=== PATIENT | female | born 1945 | race Caucasian/White ===

== ENCOUNTER 2020-08-08 09:30 | Outpatient (RCR) | payer MEDICARE, SELFPAY ==
--- NOTE | 2020-05-29 09:56 | PTOPEVAL ---
Thank you for referring Sindhu Nichols to [facility]. Please review, sign, date and return this plan of care JEFERSON. Pt has been referred to therapy to address her neck and UE pain and radiating symptoms. She requires additional skilled therapy to address decrease joint motion, UE weakness, radiating neural symptoms, and soft tissue restrictions to allow her to return to her normal daily activities. Cont PT 2x/wk x 6 wk. I agree with and certify that the following plan of care is medically necessary. Referring Physician Date Attending Provider: Wm Jeff MD *PT Outpatient Evaluation Start: 05/29/20 08:42 Freq: Status: Active Protocol: Document 05/29/20 08:45 [facility] (Rec: 05/29/20 09:20 [facility] [id number]) Therapy Assessment Status Assessment Status Assessment Status Evaluation Outpatient Past Medical History Past Medical History Source of Past Medical History Patient Cardiovascular History Hx Cardiac Disorders No Significant History Musculoskeletal History Hx Other Musculoskeletal Disorders Yes: left frozen shoulder Endocrine History Hx Hypothyroidism Yes Other History Hx Cancer Yes: left breast- 2000 Hx Chemotherapy Yes Hx Radiation Therapy Yes Evaluation Information Problem Diagnosis neck pain Onset 2 months Cause unknown Subjective Information She has been having neck pain Query Text:As Reported By Patient/ with sasha UE pain and weakness Family for the past 2 months. She has had neck pain on/off for years, but the symptoms have progressed. She reports difficulty with lifting objects due to hand weakness. She reports she has always been tight in her back/ neck muscles. Reports her right shoulder will lift up with the pain increases. She will have ACEVEDO due to muscle tightness. Will have ACEVEDO 4x/wk. She states she holds her stress and tension in her neck muscles.She has increased pain with prolonged sitting. She has increased pain with use of computer or phone. She is limited to 30'. She is not able to perform normal IADL's due to pain and weakness. She is unable to manage the vacuum
--- NOTE | 2020-06-20 10:28 | PTOPEVAL ---
Thank you for referring Sindhu Nichols to [facility]. Please review, sign, date and return this plan of care JEFERSON. Pt has received 8 therapy visits to address neck and UE impairments. She is progressing with UE function, improved pain and improved shoulder strength. She requires additional skilled therapy to achieve therapy goals. Cont PT 2x/wk x 4 wk. I agree with and certify that the following plan of care is medically necessary. Referring Physician Date Attending Provider: Wm Jeff MD Physical Therapy Update *PT Outpatient Evaluation Start: 05/29/20 08:42 Freq: Status: Active Protocol: Document 06/20/20 08:55 [facility] (Rec: 06/20/20 09:36 [facility] [id number]) Therapy Assessment Status Assessment Status Assessment Status Re-evaluation Evaluation Information Problem Diagnosis neck pain Onset 2 months Cause unknown Additional Evaluation Detail She has been having neck pain with sasha UE pain and weakness for the past 2 months. She has had neck pain on/off for years, but the symptoms have progressed. Subjective Information Reports her right UE and right Query Text:As Reported By Patient/ side of neck has improved Family with ability to hold objects in right hand. She remains limited with left neck and UE pain and weakness. She is unable to hold a cup in left hand for household activities. Left sided neck muscles remain tight. She is unable to hold the phone in the left hand without support. She has improved ousmane with prolonged sitting and use of computer. Denies pain with right UE reaching overhead, but a popping sensation. She cont to have mild dizziness 4x/day, with decreased frequency of ACEVEDO. 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 She is able to sleep better with decreased pain. Pain Assessment Timing of Pain Assessment Timing of Pain Assessment Re-assessment Pain Scale Pain Scale Used Numeric (1 - 10) Self Report Pain Assessment Right Neck R
--- NOTE | 2020-07-18 09:55 | PTOPEVAL ---
Thank you for referring Sindhu Nichols to [facility].?Pt has received 16 therapy visits to address sasha UE and neck impairments. She is progressing towards therapy goals with improved UE function and symptoms. The patient is scheduled to be seen for therapy? 2 x/week for 3 weeks. Please review, sign, date and return this plan of care JEFERSON. I agree with and certify that the following plan of care is medically necessary. Referring Physician Date Admitting Provider: Attending Provider: Wm Jeff MD Physical Therapy progress note *PT Outpatient Evaluation Start: 05/29/20 08:42 Freq: Status: Active Protocol: Document 07/18/20 08:53 [facility] (Rec: 07/18/20 09:41 [facility] [id number]) Therapy Assessment Status Assessment Status Re-evaluation Evaluation Information Problem Diagnosis neck pain Onset 2 months Cause unknown Additional Evaluation Detail She has been having neck pain with sasha UE pain and weakness for the past 2 months. She has had neck pain on/off for years, but the symptoms have progressed. Subjective Information Reports her right side of her Query Text:As Reported By Patient/ neck has significantly Family improved. She cont to have pain in her left shoulder, scapular region and lateral neck region. She remains limited with lifting objects due to pain and weakness. She cont to have limitation with grasping objets with left hand . She cont to have left neck pain with sitting > 20' at the computer. She reports improved dizziness with treatment and activities at home. She is no longer having ACEVEDO. She is able to preform cooking and light lifting. Unable to perform vaccuming. Pain Assessment Timing of Pain Assessment Timing of Pain Assessment Re-assessment Pain Scale Pain Scale Used Numeric (1 - 10) Self Report Pain Assessment Right Neck Reported Pain Level 1 Pain Description Aching Pain Frequency Intermittent Left Posterior Lateral Neck Reported Pain Level 3 Pain Description Tightness Pain Radiation Back,Left Arm Pain Frequenc
--- NOTE | 2020-08-08 10:19 | PTOPEVAL ---
Thank you for referring Sindhu Nichols to [facility].? Pt has been seen for 22 therapy visits to address neck and UE symptoms. She demonstrates progress with neck and UE motion, improved range without increased pain, improved soft tissue restriction and ability to perform daily activities. DC skilled therapy services at this time with goals achieved. Please review, sign, date and return this plan of care JEFERSON. I agree with and certify that the following plan of care is medically necessary. Referring Physician Date Admitting Provider: Attending Provider: Wm Jeff MD Referring Provider: *PT Outpatient Evaluation Start: 05/29/20 08:42 Freq: Status: Active Protocol: Document 08/08/20 09:24 [facility] (Rec: 08/08/20 10:17 [facility] [id number]) Therapy Assessment Status Assessment Status Assessment Status Re-evaluation/Discharge Note Evaluation Information Problem Diagnosis neck pain Onset 2 months Cause unknown Additional Evaluation Detail She has been having neck pain with sasha UE pain and weakness for the past 2 months. She has had neck pain on/off for years, but the symptoms have progressed. Subjective Information Reports her right side of her Query Text:As Reported By Patient/ neck has significantly Family improved with no pain. She has improved ousmane with all IADL's except vacuuming. She is still limited with prolonged. She has left neck tightness and tenderness. She has neck tightness with reading or use of phone. Reports improved UE strength since start of therapy. Reports left hand pain in the morning, but improved with exercise. She is able to perform yard work with decreased pain and symptoms. She is very mindfull of neck position and taking breaks to decrease increased symptoms. She is consistent with performing with HEP. Pain Assessment Timing of Pain Assessment Timing of Pain Assessment Re-assessment Pain Scale Pain Scale Used Numeric (1 - 10) Self Report Pain Assessment Right Neck Reported Pain Level 0 Pain Relief Interventions Used By Exercise Patient
== END 2020-08-08 15:27 | disposition home or self-care (01) ==
LOC: ANHPT 09:30
PROVIDERS: Visit Provider Orthopaedic Surgery
DX: M54.2 Cervicalgia (principal)
CPT/HCPCS: 97014; 97110; 97140; 97162; G0283